=== PATIENT | female | born 1935 | race Caucasian/White ===

== ENCOUNTER → 2016-12-08 | Outpatient (CLI) | payer MEDICARE ==
[~2016-12-08] MED LIST: AMLO5TAB22 PO; ASPI81 CHEW; ATOR80TA41 PO; CILO100T; METO50TA PO; Z.0.OXYGENDME NC
[2016-12-08 12:20] LABS: ALT (GPT) 38 U/L (10-53); ANION GAP 6 MEQ/L (5-15); AST (GOT) 35 U/L (15-37); BLOOD UREA NITROGEN 14 MG/DL (7-18); CHLORIDE 106 MEQ/L (98-107); GLOMERULAR FILTRATION RATE 69 ML/MIN (>89); GLUCOSE,FASTING 89 MG/DL (74-99); POTASSIUM 4.2 MEQ/L (3.5-5.1); SODIUM (NA) 142 MEQ/L (136-145)
[2016-12-08 12:25] LABS: ALKALINE PHOSPHATASE 66 U/L (45-117); HDL CHOLESTEROL 59.6 MG/DL (40.0-60.0); LDL CHOLESTEROL 73 MG/DL (0-99); TOTAL BILIRUBIN ADULT 0.6 MG/DL (0.2-1.0)
[2016-12-08 12:33] LABS: AUTOMATED NEUTROPHIL # 4.9 TH/MM3 (1.8-7.7); BASOPHIL % 0.6 % (0.0-2.0); EOSINOPHIL # 0.1 TH/MM3 (0-0.4); HEMATOCRIT 45.2 % (35.0-46.0); HEMO FLAGS DIFF FINAL; LYMPH % 21.4 % (9.0-44.0); LYMPHOCYTE # 1.5 TH/MM3 (1.0-4.8); MEAN CELL VOLUME 86.9 FL (80.0-100.0); MEAN CORPUSCULAR HEMOGLOBIN 28.8 PG (27.0-34.0); MEAN CORPUSCULAR HGB CONC 33.1 % (32.0-36.0); MONO % 8.5 % (0.0-8.0); NEUT % 68.5 % (16.0-70.0); PLATELET COUNT 203 TH/MM3 (150-450); RED CELL DISTRIBUTION WIDTH 13.1 % (11.6-17.2); WHITE BLOOD COUNT 7.1 TH/MM3 (4.0-11.0)
== END ==
LOC: PLAB 09:53
PROVIDERS: ATTEND Family Medicine
DX: I48.91 Unspecified atrial fibrillation (principal); G47.30 Sleep apnea, unspecified; E78.5 Hyperlipidemia, unspecified; E55.9 Vitamin D deficiency, unspecified
CPT/HCPCS: 36415; 80053; 80061; 82306; 85025

== ENCOUNTER → 2017-04-14 | Outpatient (CLI) | payer MEDICARE ==
[~2017-04-14] MED LIST changes: +LEVA500T20 PO; +LOVA10TA PO; +TOPR100T PO; +UMEC1AER INH; +XARE20TA PO
[2017-04-14 10:50] LABS: BICARBONATE 29.6 MEQ/L (21.0-32.0)
== END ==
LOC: PLAB 10:13
PROVIDERS: ATTEND Family Medicine
DX: F33.0 Major depressive disorder, recurrent, mild (principal)
CPT/HCPCS: 36415; 80048

== ENCOUNTER 2017-05-27 08:10 | Emergency (ER) | payer MEDICARE ==
[~2017-05-27] VITALS: Ht 172.7 cm; Wt 93.8 kg
[~2017-05-27 08:10] MED LIST changes: -LEVA500T20 PO; -LOVA10TA PO; -TOPR100T PO; -UMEC1AER INH; -XARE20TA PO
[2017-05-27 08:29] VITALS: BP 163/77; PULSE 98; RESP 20; TEMP 98.5; O2SAT 100
[2017-05-27] MEDS ORDERED: UMEC1AER INH (08:33)
[2017-05-27] MEDS ORDERED: TOPR100T PO (08:33)
[2017-05-27] MEDS ORDERED: LOVA10TA PO (08:33)
[2017-05-27] MEDS ORDERED: XARE20TA PO (08:33)
[2017-05-27] MEDS ORDERED: SODIUM CHLORID 0.9% 500 ML INJ 500 ML IV ONE ×2 (08:45→10:30)
[2017-05-27 08:54] LABS: AUTOMATED NEUTROPHIL # 6.6 TH/MM3 (1.8-7.7); BASOPHIL % 0.5 % (0.0-2.0); EOSINOPHIL % 0.6 % (0.0-4.0); HEMATOCRIT 46.3 % (35.0-46.0); LYMPH % 12.9 % (9.0-44.0); MEAN CELL VOLUME 86.8 FL (80.0-100.0); MEAN CORPUSCULAR HEMOGLOBIN 28.2 PG (27.0-34.0); MEAN CORPUSCULAR HGB CONC 32.5 % (32.0-36.0); MONO % 6.8 % (0.0-8.0); NEUT % 79.2 % (16.0-70.0); PLATELET COUNT 231 TH/MM3 (150-450); RED BLOOD COUNT 5.33 MIL/MM3 (4.00-5.30); RED CELL DISTRIBUTION WIDTH 12.5 % (11.6-17.2); WHITE BLOOD COUNT 8.1 TH/MM3 (4.0-11.0)
[2017-05-27 08:56] LABS: HEMO FLAGS DIFF FINAL
[2017-05-27 09:07] LABS: CHLORIDE 102 MEQ/L (98-107); SODIUM (NA) 138 MEQ/L (136-145)
[2017-05-27 09:11] LABS: ANION GAP 7 MEQ/L (5-15); BICARBONATE 29.1 MEQ/L (21.0-32.0); BLOOD UREA NITROGEN 19 MG/DL (7-18)
[2017-05-27 09:12] LABS: APTT (PATIENT) 37.2 SEC (24.3-30.1); INTERNATIONAL NORMALIZED RATIO 1.2 RATIO; PROTHROMBIN TIME - PATIENT 13.4 SEC (9.8-11.6)
[2017-05-27 09:14] LABS: ALT (GPT) 30 U/L (10-53); AST (GOT) 25 U/L (15-37); GLOMERULAR FILTRATION RATE 60 ML/MIN (>89)
[2017-05-27 09:15] LABS: TOTAL BILIRUBIN ADULT 0.6 MG/DL (0.2-1.0)
[2017-05-27 09:17] LABS: ALKALINE PHOSPHATASE 69 U/L (45-117)
[2017-05-27] MEDS ORDERED: IOHEXOL 350 MG/ML 10 ML VIAL (for RAD DIAG) IVCONTRAST ONE (09:30)
[2017-05-27 09:57] VITALS: BP 133/70; PULSE 80; RESP 20; O2SAT 97
--- NOTE | 2017-05-27 10:03 | RADRPT ---
EXAM DATE/TIME: 05/27/2017 09:25 [place] COMPARISON: No previous studies available for comparison. INDICATIONS : Aneurysm. IV CONTRAST: 96 cc Omnipaque 350 (iohexol) IV RADIATION DOSE: 22.09 CTDIvol (mGy) MEDICAL HISTORY : Cardiovascular disease. Hypercholesterolemia. Hypertension.Ca Breast. SURGICAL HISTORY : Hysterectomy. Right mastectomy.Colon. ENCOUNTER: Initial ACUITY: 1 day PAIN SCALE: 0/10 LOCATION: abdominal TECHNIQUE: Volumetric scanning was performed using a multi-row detector CT scanner. The data was post processed with a variety of visualization algorithms including full volume maximum intensity projection, multi -planar sliding thin slab reformation, curved planar reformation, and surface rendering techniques. Using automated exposure control and adjustment of the mA and/or kV according to patient size, radiat ion dose was kept as low as reasonably achievable to obtain optimal diagnostic quality images. DICOM format image data is available electronically for review and comparison. FINDINGS: Thoracic aorta: The aortic root is normal in caliber measuring 2.7 cm. The tubular portion of the ascending aorta is normal in size measuring 3.2 cm. The proximal arch is normal in caliber. The exam does demonstrate an eurysmal dilation of the mid arch with a maximum dimension of 4 cm. There is no evidence of rupture. There is normal anatomic branching of the great vessels from the arch. The descending thoracic aorta returns to a normal caliber and measures 2.5 cm down to a point just above the level of the diaphragm atic hiatus. At this point, there is focal aneurysmal dilation with a maximum dimension of 3.5 cm. Th e thoracic aorta again returns to normal caliber at the level of the diaphragmatic hiatus. Abdominal aorta: The celiac and SMA origins are widely patent. There are single renal arteries bilaterally. The renal arteries are widely patent. The infrarenal aorta is normal in caliber. There is mild diffuse atherosc lerotic plaquing. There is mild aneurysmal dilation of the right common iliac of 1.5 cm. The external iliac circulation is diseased but normal in caliber throughout. CT source data: There are moderate COPD changes throughout the pulmonary parenchyma. No suspicious mass lesion is jo ntified. No significant hilar or mediastinal adenopathy is present. There is atherosclerotic plaque i n the coronary arteries. Imaging through the upper abdomen demonstrates a 2.7 cm simple cyst within t he left lobe of the liver. The solid organs of the abdomen are otherwise intact. There is no retroper itoneal adenopathy. No free fluid is seen within the pelvis. No iliac or inguinal adenopathy is prese nt. There are degenerative changes throughout the thoracic and lumbar spine.. CONCLUSION: 1. There is aneurysmal dilation in the mid and distal portions of the aortic arch. Maximum dimension of the aortic arch is 4 cm. There is no evidence of rupture. 2. There is a second area of aneurysmal dilation of the distal thoracic aorta just above the level of the diaphragm measuring 3.5 cm. Again, there is no dense of rupture. 3. The abdominal aorta is normal in caliber throughout. 4. There are advanced COPD changes within the pulmonary parenchyma. 5. Atherosclerotic plaquing in the coronary arteries. 6. 2.7 cm simple cyst within the left lobe of the liver. 7. Degenerative changes throughout the thoracic and lumbar spine. 8. No free air or free fluid identified. Herbert Reynolds MD on May 27, 2017 at 9:56 Board Certified Radiologist. This report was verified electronically.
[2017-05-27 10:14] LABS: BLOOD, URINE LARGE (NEG); GLUCOSE,URINE NEG (NEG); KETONE, URINE TRACE mg/dL (NEG); NITRITE,URINE POS (NEG)
[2017-05-27 10:15] LABS: METHOD OF COLLECTION CLEAN CATCH; URINE COLOR RED (YELLW/STRAW)
[2017-05-27 10:19] LABS: COMMENT (UR) CULTURE INDICATED; CULTURE IF INDICATED CULTURE INDICATED; RBC, URINE INNUM /hpf (0-3); WBC, URINE 0-2 /hpf (0-5)
[2017-05-27] MEDS ORDERED: LEVOFLOXACIN 500 MG PREMIX INJ 100 ML IV ONE (10:30)
[2017-05-27 10:54] VITALS: BP 141/71; PULSE 70; RESP 20; O2SAT 94
--- NOTE | 2017-05-27 11:12 | PD ---
HPI Chief Complaint: Complaint Time Seen by Provider: 08:26 Travel History International Travel<30 days: No Contact w/Intl Traveler<30days: No Traveled to known affect area: No History of Present Illness HPI Patient is an 82-year-old female who comes in complaining of blood in her urine. She says that overnight she went and use the restroom and noticed a lot of blood in the toilet. She says she then again noticed it this morning. She got nervous, so she came in. She says she is not really having any symptoms of anything. She denies any pain. She denies any abdominal pain or back pain. She denies any dizziness or palpitations. She is on Xarelto due to atrial fibrillation. She says she has not been in atrial fibrillation for at least a year. She denies any headache or any shortness of breath. PFSH Past Medical History Hx Anticoagulant Therapy: Yes Anxiety: Yes Depression: No Heart Rhythm Problems: Yes (A-FIB W/ RVR 08/27/2013) Cancer: Yes Cardiovascular Problems: Yes High Cholesterol: Yes Diminished Hearing: No Endocrine: No Hypertension: Yes Immune Disorder: No Psychiatric: Yes Reproductive: No Respiratory: Yes ?: Not Past Surgical History Abdominal Surgery: Yes (COLON SURGERY 2003) AICD: No Arteriovenous Shunt: No Cardiac Surgery: No Genitourinary Surgery: No Hysterectomy: Yes (1986) Insulin Pump: No Joint Replacement: No Mastectomy: Yes (RIGHT) Pacemaker: No Thoracic Surgery: No Other Surgery: Yes (RIGHT MASECTOMY 2004) Social History Alcohol Use: No Tobacco Use: No Substance Use: No Allergies-Medications (Allergen,Severity, Reaction): Coded Allergies: ceftizoxime (Unverified Allergy, Intermediate, ITCHING,RASH,IRRITABILITY, 05/27/17) Reported Meds & Prescriptions Reported Meds & Active Scripts Active Reported Toprol XL (Metoprolol Succinate) 100 Mg Tab 100 Mg PO DAILY Lovastatin 10 Mg Tab 10 Mg PO DAILY Anoro Ellipta Inh (Umeclidinium/Vilanterol) 62.5-25 Mcg/Act Aero 1 Puff INH DAILY Xarelto (Rivaroxaban) 20 Mg Tab 20 Mg PO DAILY Review of Systems Except as stated in HPI: all other systems reviewed are Neg General / Constitutional: No: Fever, Chills Eyes: No: Blurred Vision HENT: No: Headaches, Lightheadedness Cardiovascular: No: Chest Pain or Discomfort, Palpitations Respiratory: No: Shortness of Breath Gastrointestinal: No: Nausea, Vomiting, Abdominal Pain Genitourinary: Positive: Hematuria Musculoskeletal: No: Myalgias, Weakness Skin: No Rash, No Itching Neurologic: No: Weakness, Dizziness Physical Exam Narrative GENERAL: Awake and alert, in no acute distress. SKIN: Focused skin assessment warm/dry. HEAD: Atraumatic. Normocephalic. EYES: Pupils equal and round. No scleral icterus. ENT: Mucous membranes pink and moist. NECK: Trachea midline. No JVD. CARDIOVASCULAR: Regular rate and rhythm. No murmur appreciated. RESPIRATORY: No accessory muscle use. Clear to auscultation. Breath sounds equal bilaterally. GASTROINTESTINAL: Abdomen soft, non-tender, nondistended. No CVA tenderness. MUSCULOSKELETAL: No obvious deformities. No clubbing. No cyanosis. No edema. NEUROLOGICAL: Awake and alert. No obvious cranial nerve deficits. Motor grossly within normal limits. Normal speech. PSYCHIATRIC: Appropriate mood and affect; insight and judgment normal. Data Data Last Documented VS Vital Signs Date Time Temp Pulse Resp B/P (MAP) Pulse Ox O2 Delivery O2 Flow Rate FiO2 05/27/17 10:54 70 20 141/71 (94) 94 05/27/17 08:29 98.5 Orders Orders Complete Blood Count With Diff (05/27/17 08:35) Comprehensive Metabolic Panel (05/27/17 08:35) Prothrombin Time / Inr (Pt) (05/27/17 08:35) Act Partial Throm Time (Ptt) (05/27/17 08:35) Troponin I (05/27/17 08:35) Cta Thor Abd Aorta W Iv C W3d (05/27/17 08:35) Urinalysis - C+S If Indicated (05/27/17 08:35) Sodium Chlorid 0.9% 500 Ml Inj (Ns 500 M (05/27/17 08:45) Type And Screen (05/27/17 08:35) Iohexol 350 Inj (Omnipaque 350 Inj) (05/27/17 09:30) Urine Culture (05/27/17 10:05) Levofloxacin 500 Mg Premix Inj (Levaquin (05/27/17 10:30) Sodium Chlorid 0.9% 500 Ml Inj (Ns 500 M (05/27/17 10:30) Labs Laboratory Tests Test 05/27/17 08:45 05/27/17 10:05 White Blood Count 8.1 TH/MM3 Red Blood Count 5.33 MIL/MM3 Hemoglobin 15.1 GM/DL Hematocrit 46.3 % Mean Corpuscular Volume 86.8 FL Mean Corpuscular Hemoglobin 28.2 PG Mean Corpuscular Hemoglobin Concent 32.5 % Red Cell Distribution Width 12.5 % Platelet Count 231 TH/MM3 Mean Platelet Volume 7.5 FL Neutrophils (%) (Auto) 79.2 % Lymphocytes (%) (Auto) 12.9 % Monocytes (%) (Auto) 6.8 % Eosinophils (%) (Auto) 0.6 % Basophils (%) (Auto) 0.5 % Neutrophils # (Auto) 6.6 TH/MM3 Lymphocytes # (Auto) 1.0 TH/MM3 Monocytes # (Auto) 0.5 TH/MM3 Eosinophils # (Auto) 0.0 TH/MM3 Basophils # (Auto) 0.0 TH/MM3 CBC Comment DIFF FINAL Differential Comment Prothrombin Time 13.4 SEC Prothromb Time International Ratio 1.2 RATIO Activated Partial Thromboplast Time 37.2 SEC Blood Urea Nitrogen 19 MG/DL Creatinine 0.90 MG/DL Random Glucose 111 MG/DL Total Protein 7.2 GM/DL Albumin 3.5 GM/DL Calcium Level 9.0 MG/DL Alkaline Phosphatase 69 U/L Aspartate Amino Transf (AST/SGOT) 25 U/L Alanine Aminotransferase (ALT/SGPT) 30 U/L Total Bilirubin 0.6 MG/DL Sodium Level 138 MEQ/L Potassium Level 4.0 MEQ/L Chloride Level 102 MEQ/L Carbon Dioxide Level 29.1 MEQ/L Anion Gap 7 MEQ/L Estimat Glomerular Filtration Rate 60 ML/MIN Troponin I LESS THAN 0.02 NG/ML Urine Collection Type CLEAN CATCH Urine Color RED Urine Turbidity CLOUDY Urine pH 7.0 Urine Specific [place] GREATER THAN 1.035 Urine Protein 100 mg/dL Urine Glucose (UA) NEG mg/dL Urine Ketones TRACE mg/dL Urine Occult Blood LARGE Urine Nitrite POS Urine Bilirubin NEG Urine Leukocyte Esterase TRACE Urine RBC INNUM /hpf Urine WBC 0-2 /hpf Microscopic Urinalysis Comment CULTURE INDICATED MDM Medical Decision Making Medical Screen Exam Complete: Yes Emergency Medical Condition: Yes Medical Record Reviewed: Yes Differential Diagnosis UTI versus coagulopathy versus aneurysm Narrative Course Patient is an 82-year-old female comes in complaining of hematuria. She does have history of thoracic aneurysm, which is followed by Dr. Wilde per patient. She is not having any pain at this time. Exam shows no acute abnormalities. IV established, labs sent. Labs show hemoglobin of 15, urinalysis is positive for UTI. CTA of the aorta performed shows 2 thoracic aortic aneurysms, with no evidence of leakage or rupture. I spoke with the nurse practitioner with Dr. Candelario, the patient's primary care doctor, regarding the patient. We decided she should hold her Xarelto and follow-up with them on Monday. She was given a dose of Levaquin here for her UTI. She'll be discharged with a prescription. She is advised to return if the bleeding worsens or starts to have any symptoms. Otherwise, she should follow-up with her primary care doctor Monday. Diagnosis Primary Impression: UTI (urinary tract infection) Qualified Codes: N30.01 - Acute cystitis with hematuria Additional Impression: Hematuria Qualified Codes: R31.0 - Gross hematuria Patient Instructions: General Instructions, Urinary Tract Infection in Women ( ED) Additional Instructions: Stop taking her Xarelto until you see Dr. Candelario on Monday. Follow-up with Dr. Candelario's office Monday morning. Take all of your antibiotic. If the bleeding worsens, or used our to feel unwell come back to the emergency department immediately. Return any time for any worsening symptoms. Scripts Levofloxacin (Levaquin) 500 Mg Tablet 500 MG PO DAILY for Infection for 7 Days, #7 TAB 0 Refills Prov: Melonie Worthy MD 05/27/17 Disposition: 01 DISCHARGE HOME Condition: Stable Melonie Worthy MD May 27, 2017 11:12
[2017-05-27] MEDS ORDERED: LEVA500T20 PO (11:17)
[2017-05-27 12:08] VITALS: BP 140/76
== END 2017-05-27 12:09 | disposition home or self-care (01) ==
LOC: PHED 08:10
DX: N30.01 Acute cystitis with hematuria (principal); I71.2 Thoracic aortic aneurysm, without rupture; B96.89 Other specified bacterial agents as the cause of diseases classified elsewhere; I48.91 Unspecified atrial fibrillation; Z79.01 Long term (current) use of anticoagulants
CPT/HCPCS: 71275; 74174; 80053; 81001; 84484; 85025; 85610; 85730; 86850; 86900; 86901; 87086; 96361; 96365; 99285; J1956; J7040; Q9967

== ENCOUNTER → 2017-06-13 | Outpatient (CLI) | payer MEDICARE ==
[~2017-06-13] MED LIST changes: -AMLO5TAB22 PO; -ASPI81 CHEW; -ATOR80TA41 PO; -CILO100T; +LEVA500T20 PO; +LOVA10TA PO; -METO50TA PO; +TOPR100T PO; +UMEC1AER INH; +XARE20TA PO; -Z.0.OXYGENDME NC
[2017-06-13 15:53] LABS: HDL CHOLESTEROL 65.8 MG/DL (40.0-60.0)
== END ==
LOC: PLAB 08:41
PROVIDERS: ATTEND Family Medicine
DX: E78.2 Mixed hyperlipidemia (principal); I70.219 Atherosclerosis of native arteries of extremities with intermittent claudication, unspecified extremity; I10 Essential (primary) hypertension
CPT/HCPCS: 36415; 80061